=== PATIENT | male | born 1990 | race Caucasian/White ===

== ENCOUNTER → 2016-06-11 | Outpatient (CLI) | payer BC ==
[~2016-06-11] MED LIST: [UNRECOGNIZED DRUG - CODE] PO; [UNRECOGNIZED DRUG - CODE] PO
--- NOTE | 2016-06-11 09:32 | DI ---
Indication: ITS.REASON: R19.00 GROIN MASS PROCEDURE: US SOFT TISSUE ABD WALL: Encounter: Initial Comparison: None Technique: Grayscale and color Doppler sonographic imaging of the right inguinal area was performed. Findings: Imaging shows a normal-appearing lymph node with a fatty hilum in the right groin adjacent to the common femoral artery. No other sonographic abnormality seen. No fluid collection or mass. Impression: No acute abnormality seen. .
== END ==
LOC: IMA 07:30
PROVIDERS: ATTEND Family Medicine
DX: R19.03 Right lower quadrant abdominal swelling, mass and lump (principal)

== ENCOUNTER → 2016-06-18 | Outpatient (CLI) | payer BC ==
--- NOTE | 2016-06-18 15:20 | DI ---
Indication: ITS.REASON: M25.561 PAIN IN RIGHT KNEE PROCEDURE: KNEE RIGHT STANDING 2-3 VIEWS: Encounter: Initial Comparison: None Findings: There is no acute fracture, dislocation or malalignment identified. Joint spaces are normal. No joint effusion. Impression: No acute osseous abnormality. .
== END ==
LOC: IMA 14:47
PROVIDERS: ATTEND Family Medicine
DX: M25.561 Pain in right knee (principal); Z87.828 Personal history of other (healed) physical injury and trauma

== ENCOUNTER → 2016-07-10 | Outpatient (CLI) | payer BC ==
--- NOTE | 2016-07-10 16:19 | DI ---
Indication: ITS.REASON: R22.1 MASS OF NECK PROCEDURE: US THYROID: Encounter: Initial Comparison: None Technique: Grayscale and color Doppler sonographic imaging of the thyroid gland was performed. Findings: Thyroid isthmus is normal measuring 0.2 cm in diameter. Right thyroid lobe is homogeneous without discrete nodule or mass. Left thyroid lobe also appears normal. Normal vascularity seen to both thyroid lobes. Incidentally noted are two small normal appearing lymph nodes in the left neck at the area of palpable concern. Right lobe measures 4.5 x 1.4 x 1.6 cm. Left lobe measures 4.3 x 1.3 x 1.4 cm. Impression: Normal appearance of the thyroid gland. Two small normal-appearing lymph nodes in the left neck. .
== END ==
LOC: IMA 15:01
PROVIDERS: ATTEND Family Medicine
DX: R22.1 Localized swelling, mass and lump, neck (principal)